=== PATIENT | male | born 1965 | race Two or more races ===

== ENCOUNTER 2019-04-14 05:16 | Day surgery (SDC) | payer OTHER ==
[~2019-04-14 05:16] MED LIST: LIPOFEN50 MG PO
[2019-04-14] MEDS ORDERED: POLY119PG PO (09:14)
[2019-04-14] MEDS ORDERED: PERCOCET 5-3251 EACH PO (09:14)
[2019-04-14] MEDS ORDERED: SURFAK240 M1 PO (09:15)
== END 2019-04-14 12:30 | disposition home or self-care (01) ==
LOC: CIR.AMB 05:16
DX: K80.10 Calculus of gallbladder with chronic cholecystitis without obstruction (principal)

== ENCOUNTER 2019-05-10 12:12 | Inpatient (IN) | payer OTHER ==
[~2019-05-10] VITALS: Ht 177.8 cm; Wt 72.6 kg
[~2019-05-10 12:12] MED LIST changes: +PERCOCET 5-3251 EACH PO; +POLY119PG PO; +SURFAK240 M1 PO
[2019-05-13] MEDS ORDERED: CHOLESTYRAMINE L4 GM PO (14:27)
[2019-05-13] MEDS ORDERED: AMOX1TAB5 PO (14:33)
[2019-05-13] MEDS ORDERED: ALLEGRA ALLERG180 MG PO (14:33)
[2019-05-13] MEDS ORDERED: BENADRYL25 MG PO (14:35)
== END 2019-05-13 15:02 | disposition home or self-care (01) | DRG 445 ==
LOC: ER 12:12 → MEDJ 18:50
PROVIDERS: Internal Medicine Gastroenterology; ADMIT Internal Medicine Cardiovascular Disease
PROC: BF37ZZZ Magnetic Resonance Imaging (MRI) of Pancreas (ICD-10-PCS; 2019-05-10)
PROC: BW40ZZZ Ultrasonography of Abdomen (ICD-10-PCS; 2019-05-10)
PROC: 0FJB8ZZ Inspection of Hepatobiliary Duct, Via Natural or Artificial Opening Endoscopic (ICD-10-PCS; principal; 2019-05-11 08:30)
DX: K80.11 Calculus of gallbladder with chronic cholecystitis with obstruction (principal); Q61.01 Congenital single renal cyst; I10 Essential (primary) hypertension

== ENCOUNTER → 2019-07-20 | Day surgery (SDC) | payer OTHER ==
[~2019-07-20] MED LIST changes: +ALLEGRA ALLERG180 MG PO; +AMOX1TAB5 PO; +BENADRYL25 MG PO; +CHOLESTYRAMINE L4 GM PO
== END | disposition home or self-care (01) ==
LOC: ADM 07-16 07:30 → AMB-ERCP 06:45
DX: K83.1 Obstruction of bile duct (principal)

== ENCOUNTER 2019-07-21 09:19 | Emergency (ER) | payer OTHER ==
[~2019-07-21] VITALS: Ht 177.8 cm; Wt 77.1 kg
== END 2019-07-21 14:33 | disposition home or self-care (01) ==
LOC: ER 09:19
DX: R50.9 Fever, unspecified (principal); R93.3 Abnormal findings on diagnostic imaging of other parts of digestive tract